=== PATIENT | female | born 1980 | race Caucasian/White ===

== ENCOUNTER → 2017-06-18 | Outpatient (CLI) | payer OTHER ==
[~2017-06-18] MED LIST: ACYCLOVIR 200200 MG PO
== END ==
LOC: ULTRA 12:40
DX: R10.2 Pelvic and perineal pain (principal)

== ENCOUNTER → 2020-04-20 | Outpatient (CLI) | payer BC | LOC: BC 08:39 → ULTRA 12:32 → RAD 12:32 | PROVIDERS: ATTEND Obstetrics & Gynecology | DX: N63.13 Unspecified lump in the right breast, lower outer quadrant (principal); N64.4 Mastodynia ==